=== PATIENT | male | born 1965 ===

== ENCOUNTER 2022-01-13 03:13 | Outpatient (CLI) | payer BC, SELFPAY ==
--- NOTE | 2022-01-13 15:00 | NS.NUTBLAN_ITS ---
Sander was self referred for diet for diabetes self management education. Sander reports that about 2 years ago he developed lesions on his spinal column and successfully was treated with immunotherapy. Subsequently, his pancreas no longer was able to produce insulin. He developed Dm1. Since that time, he has met with endocrinology at [facility] one time and has had difficulty getting more frequent visits to adjust his diabetes medication. 5'6 140 lbs BMI: 22 typical weight for him prior to Dm/cancer dx Dm meds: lantus 24 units in AM, apart about 5-10 units at meals. He received a Yaya 2 continuous glucose monitor but has not placed it yet. Finger sticks: Fasting levels range from 160-247 mgl/dl. Also, has hypoglycemia several times a week, as low as 50 mg/dl. Often has hyperglycemia, has high as 500 mg/dl. Diet Recall: Sander is a night owl and typically starts his day around Noon. Brunch is often cereal, milk , Dinner around 9 pm could be pizza or corn beef hash. He is active around the house and will hike and bike. Session today focused on counting carbs, treating hypoglycemia and correcting hyperglycemia. Provided education on how to place Yaya 2 CGM and encouraged him to accept to be monitored remotely by [facility]. Also Recommend: 1. Split lantus dose BID: 12 units AM, 12 units PM 2. 1:10 insulin to carb ratio- use phone ruslan to count carbs 3. 1:40 insulin correction factor - correct insulin once once daily to avoid insulin stacking. 4. follow up in 2 weeks with CGM data for down load.
== END 2022-01-13 03:14 | disposition home or self-care (01) ==
LOC: DS 03:13
PROVIDERS: PCP Pediatrics; Visit Provider Dietitian, Registered
DX: E11.9 Type 2 diabetes mellitus without complications (principal); Z79.4 Long term (current) use of insulin; Z71.3 Dietary counseling and surveillance
CPT/HCPCS: 97802